=== PATIENT | female | born 1940 | race Two or more races ===

== ENCOUNTER 2017-09-16 09:00 | Outpatient (CLI) | payer OTHER ==
[~2017-09-16 09:00] MED LIST: COUMADIN4 MG PO
== END 2017-09-16 09:07 | disposition home or self-care (01) ==
LOC: RAD 09:00
DX: I10 Essential (primary) hypertension (principal)

== ENCOUNTER 2017-09-18 09:27 | Outpatient (CLI) | payer OTHER | END 2017-09-18 11:56 | disposition home or self-care (01) | LOC: SONOGRAMA 09:27 | DX: K76.0 Fatty (change of) liver, not elsewhere classified (principal) ==

== ENCOUNTER 2017-11-29 10:05 | Outpatient (CLI) | payer OTHER | END 2017-11-29 10:15 | disposition home or self-care (01) | LOC: TOM 10:05 | DX: G31.84 Mild cognitive impairment of uncertain or unknown etiology (principal); G25.0 Essential tremor ==

== ENCOUNTER 2020-01-13 14:31 | Emergency (ER) | payer OTHER ==
[~2020-01-13] VITALS: Ht 157.5 cm; Wt 49.0 kg
[2020-01-13] MEDS ORDERED: LEVO-T25 MCG (14:51)
[2020-01-13] MEDS ORDERED: JANTOVEN2 MG (14:52)
[2020-01-13] MEDS ORDERED: ENALAPRIL MALEAT5 MG (14:52)
[2020-01-13] MEDS ORDERED: DIGOXIN125 MCG PO (14:52)
[2020-01-13] MEDS ORDERED: FOSAMAX70 MG (14:54)
[2020-01-13] MEDS ORDERED: LOPRESSOR HCT1 EACH (14:54)
== END 2020-01-14 00:28 | disposition home or self-care (01) ==
LOC: ER 14:31
DX: I50.9 Heart failure, unspecified (principal); I51.7 Cardiomegaly; R31.29 Other microscopic hematuria; Z03.818 Encounter for observation for suspected exposure to other biological agents ruled out; Z95.0 Presence of cardiac pacemaker

== ENCOUNTER 2020-07-13 10:08 | Outpatient (CLI) | payer OTHER ==
[~2020-07-13 10:08] MED LIST changes: +DIGOXIN125 MCG PO; +ENALAPRIL MALEAT5 MG; +FOSAMAX70 MG; +JANTOVEN2 MG; +LEVO-T25 MCG; +LOPRESSOR HCT1 EACH
== END 2020-07-13 10:11 | disposition home or self-care (01) ==
LOC: NUCLEAR 10:08
PROVIDERS: ATTEND Internal Medicine Clinical Cardiac Electrophysiology
DX: I73.9 Peripheral vascular disease, unspecified (principal); I87.2 Venous insufficiency (chronic) (peripheral)

== ENCOUNTER 2020-07-14 09:51 | Outpatient (CLI) | payer OTHER | END 2020-07-14 09:52 | disposition home or self-care (01) | LOC: NUCLEAR 09:51 | PROVIDERS: ATTEND Internal Medicine Clinical Cardiac Electrophysiology | DX: I73.9 Peripheral vascular disease, unspecified (principal); I87.2 Venous insufficiency (chronic) (peripheral) ==

== ENCOUNTER 2020-08-10 14:20 | Outpatient (CLI) | payer OTHER | END 2020-08-10 14:22 | disposition home or self-care (01) | LOC: NUCLEAR 14:20 | PROVIDERS: ATTEND Family Medicine | DX: M81.0 Age-related osteoporosis without current pathological fracture (principal) ==

== ENCOUNTER 2020-09-09 08:42 | Outpatient (CLI) | payer OTHER | END 2020-09-09 08:48 | disposition home or self-care (01) | LOC: RAD 08:42 | PROVIDERS: ATTEND Internal Medicine Cardiovascular Disease | DX: I50.22 Chronic systolic (congestive) heart failure (principal) ==

== ENCOUNTER 2021-05-22 08:41 | Outpatient (CLI) | payer OTHER | END 2021-05-22 08:52 | disposition home or self-care (01) | LOC: RAD 08:41 | PROVIDERS: ATTEND Internal Medicine Cardiovascular Disease | DX: I50.22 Chronic systolic (congestive) heart failure (principal) ==